=== PATIENT | male | born 1975 | race Caucasian/White ===

== ENCOUNTER 2021-02-08 09:48 | Emergency (ER) | payer SELFPAY ==
[~2021-02-08] VITALS: Ht 180.3 cm; Wt 87.1 kg
== END 2021-02-08 10:50 | disposition home or self-care (01) ==
LOC: ER 09:48
DX: F20.9 Schizophrenia, unspecified (principal); F22 Delusional disorders; F17.210 Nicotine dependence, cigarettes, uncomplicated
CPT/HCPCS: 99281; A9270

== ENCOUNTER 2021-05-06 22:13 | Emergency (ER) | payer OTHER ==
[~2021-05-06] VITALS: Ht 180.3 cm; Wt 85.3 kg
[2021-05-06 23:04] LABS: BASOPHILS ABSOLUTE AUTO 0.05 K/mm3 (0.00-0.23); BASOPHILS PERCENT AUTO 0 % (0-2); EOSINOPHILS ABSOLUTE AUTO 0.08 K/mm3 (0.00-0.68); EOSINOPHILS PERCENT AUTO 1 % (0-6); Hematocrit 41.1 % (37.0-53.0); Hemoglobin 13.9 g/dL (13.5-17.5); IMMATURE GRAN ABSOLUTE AUTO 0.03 K/mm3 (0.00-0.10); IMMATURE GRAN PERCENT AUTO 0 % (0-1); LYMPHOCYTES ABSOLUTE AUTO 1.98 K/mm3 (0.84-5.20); LYMPHOCYTES PERCENT AUTO 17 % (21-46); MONOCYTES ABSOLUTE AUTO 1.42 K/mm3 (0.16-1.47); MONOCYTES PERCENT AUTO 12 % (4-13); Mean Corpuscular HGB 29.4 pg (26.0-34.0); Mean Corpuscular HGB Conc 33.8 g/dL (31.5-36.5); Mean Corpuscular Volume 87 fL (80-100); Mean Platelet Volume 8.9 fL (9.1-12.4); NEUTROPHILS ABSOLUTE AUTO 8.08 K/mm3 (1.96-9.15); NEUTROPHILS PERCENT AUTO 69 % (41-73); Platelet Count 250 K/mm3 (150-400); RDW Coefficient Variation 12.9 % (11.7-14.2); RDW Standard Deviation 41.4 fL (35.1-46.3); Red Blood Cell Count 4.72 M/mm3 (4.30-5.90); White Blood Cell Count 11.64 K/mm3 (4.00-11.30)
[2021-05-06 23:20] LABS: Anion Gap 4 mmol/L (6-16); Blood Urea Nitrogen 13 mg/dL (8-24); Bun/Creatinine Ratio 15.2 (12.0-20.0); CO2, Blood 26 mmol/L (21-32); Chloride, Blood 108 mmol/L (98-108); Creatinine, Blood 0.86 mg/dL (0.60-1.20); Glomerular Filtration Rate >60 (60-); Glucose, Blood 114 mg/dL (70-99); Potassium, Blood 3.9 mmol/L (3.5-5.5); Sodium, Blood 138 mmol/L (136-145)
[2021-05-07] MEDS ORDERED: AMOCLA875 PO (03:21)
== END 2021-05-07 03:39 | disposition home or self-care (01) ==
LOC: ER 22:13
PROVIDERS: Student in an Organized Health Care Education/Training Program
DX: K04.7 Periapical abscess without sinus (principal); M27.2 Inflammatory conditions of jaws; F17.210 Nicotine dependence, cigarettes, uncomplicated
CPT/HCPCS: 36415; 41800; 70487; 80048; 83605; 85025; 96365; 99284-25; J0295; J7030; Q9967